=== PATIENT | female | born 1955 | race Caucasian/White ===

== ENCOUNTER 2019-06-04 08:56 | Emergency (ER) | payer OTHER ==
[~2019-06-04] VITALS: Ht 167.6 cm; Wt 59.9 kg
[2019-06-04] MEDS ORDERED: VASOTEC5 MG (09:04)
[2019-06-04] MEDS ORDERED: TIROSINT25 MCG (09:05)
== END 2019-06-04 12:57 | disposition home or self-care (01) ==
LOC: ER 08:56
DX: J06.9 Acute upper respiratory infection, unspecified (principal)